=== PATIENT | female | born 2000 | race Caucasian/White ===

== ENCOUNTER 2018-03-06 12:42 | Emergency (ER) | payer SELFPAY ==
[2018-03-06 15:29] LABS: ABS Basophils 0.1 10^3/ul (0-0.2); ABS Eosinophils 0.1 10^3/ul (0-0.6); ABS Lymphocytes 2.2 10^3/ul (1.0-4.8); ABS Monocytes 1.1 10^3/ul (0-0.8); ABS Neutrophils 9.5 10^3/ul (1.5-7.7); ABS Nucleated RBC 0 10^3/ul; Eosinophil % 0.9 % (0-6); Hematocrit 47 % (35-47); Hemoglobin 16.3 g/dl (12.0-16.0); Lymphocyte % 16.7 % (25-47); Mean Corpuscular HGB Conc 34 g/dl (31-36); Mean Corpuscular Hemoglobin 30 pg (27-31); Mean Corpuscular Volume 87 fL (80-97); Mean Platelet Volume 7.1 um3 (7.4-10.4); Nucleated Red Blood Cells % 0; Platelet Count 355 10^3/ul (150-450); Red Blood Count 5.43 10^6/ul (4.00-5.40); Red Cell Distribution Width 14 % (10.5-15)
[2018-03-06 15:46] LABS: EGFR Non-African American 91.1 (>60)
[2018-03-06 16:33] LABS: Urine Appearance Cloudy; Urine Blood Negative (Negative); Urine Color Yellow; Urine Ketones Trace (Negative); Urine Protein 1+(30 mg/dL) (Negative); Urine Specific Gravity 1.021 (1.010-1.030); Urine Urobilinogen Negative (Negative)
--- NOTE | 2018-03-06 21:26 | ED ---
Braulio Turner Stephanie, scribed for Toby Boyer MD on 03/06/18 at 1316 . Psychiatric Complaint - HPI Summary HPI Summary: The pt is a 17 y/o F presenting to the ED with c/o SI and HI that began at today. The pt states there is no diagnosed psych hx however, the pt has been depressed and anxious for the past year since living alone. Pt states her mother does not like that patient identifies as being transgendered and since her mother does not approve she is this way her thoughts of wanting to hurt others or even take her own life increased. Pt denies any specific plans of SI/ HI. - History Of Current Complaint Chief Complaint: EDMentalHealth Time Seen by Provider: 03/06/18 13:08 Hx Obtained From: Patient ?: No Timing: Constant Severity Currently: Moderate Character: Depressed Aggravating Factor(s): Recent Stress Alleviating Factor(s): Nothing Has Suicidal: Reports: Thoughts. Denies: With A Plan Has Homicidal: Reports: Thoughts. Denies: With A Plan - Allergies/Home Medications Allergies/Adverse Reactions: Allergies Allergy/AdvReac Type Severity Reaction Status Date / Time cefaclor Allergy Unknown Verified 03/06/18 14:02 Reaction Details Home Medications: Home Medications NK [No Home Medications Reported] 03/06/18 [History Confirmed 03/06/18] PMH/Surg Hx/FS Hx/Imm Hx Sensory History: Denies: Hx Legally Blind EENT History: Denies: Hx Deafness - Surgical History Surgery Procedure, Year, and Place: Hernia repair as a child Infectious Disease History: No Infectious Disease History: Denies: Traveled Outside the US in Last 30 Days - Family History Known Family History: Negative: Renal Disease - Social History Occupation: Employed Part-time Lives: Alone Alcohol Use: None Hx Substance Use: No Substance Use Type: Reports: None Hx Tobacco Use: No Smoking Status (MU): Never Smoked Tobacco Have You Smoked in the Last Year: No Review of Systems Negative: Fever Negative: Slurred Speech Positive: Other - SI/HI All Other Systems Reviewed And Are Negative: Yes Physical Exam - Summary Physical Exam Summary: VITAL SIGNS: Reviewed. GENERAL: Patient is a well-developed and nourished FEMALE who is lying comfortable in the stretcher. Patient is not in any acute respiratory distress. HEAD AND FACE: No signs of trauma. No ecchymosis, hematomas or skull depressions. No sinus tenderness. EYES: PERRLA, EOMI x 2, No injected conjunctiva, no nystagmus. EARS: Hearing grossly intact. Ear canals and tympanic membranes are within normal limits. MOUTH: Oropharynx within normal limits. NECK: Supple, trachea is midline, no adenopathy, no JVD, no carotid bruit, no c- spine tenderness, neck with full ROM. CHEST: Symmetric, no tenderness at palpation LUNGS: Clear to auscultation bilaterally. No wheezing or crackles. CVS: Regular rate and rhythm, S1 and S2 present, no murmurs or gallops appreciated. ABDOMEN: Soft, non-tender. No signs of distention. No rebound no guarding, and no masses palpated. Bowel sounds are normal. EXTREMITIES: FROM in all major joints, no edema, no cyanosis or clubbing. NEURO: Alert and oriented x 3. No acute neurological deficits. Speech is normal and follows commands. SKIN: Dry and warm Triage Information Reviewed: Yes Vital Signs On Initial Exam: Initial Vitals Temp Pulse Resp BP Pulse Ox 98.2 F 97 16 123/91 99 03/06/18 12:57 03/06/18 12:57 03/06/18 12:57 03/06/18 12:57 03/06/18 12:57 Vital Signs Reviewed: Yes Diagnostics - Vital Signs Vital Signs Temp Pulse Resp BP Pulse Ox 03/06/18 12:57 98.2 F 97 16 123/91 99 - Laboratory Lab Results: Lab Results 03/06/18 03/06/18 Range/Units 15:23 15:23 WBC 13.0 H (3.5-10.8) 10^3/ul RBC 5.43 H (4.00-5.40) 10^6/ul Hgb 16.3 H (12.0-16.0) g/dl Hct 47 (35-47) % MCV 87 (80-97) fL MCH 30 (27-31) pg MCHC 34 (31-36) g/dl RDW 14 (10.5-15) % Plt Count 355 (150-450) 10^3/ul MPV 7.1 L (7.4-10.4) um3 Neut % (Auto) 73.0 (38-83) % Lymph % (Auto) 16.7 L (25-47) % [place] % (Auto) 8.5 H (0-7) % Eos % (Auto) 0.9 (0-6) % Baso % (Auto) 0.9 (0-2) % Absolute Neuts (auto) 9.5 H (1.5-7.7) 10^3/ul Absolute Lymphs (auto) 2.2 (1.0-4.8) 10^3/ul Absolute Monos (auto) 1.1 H (0-0.8) 10^3/ul Absolute Eos (auto) 0.1 (0-0.6) 10^3/ul Absolute Basos (auto) 0.1 (0-0.2) 10^3/ul Absolute Nucleated RBC 0 10^3/ul Nucleated RBC % 0 Sodium 137 (135-145) mmol/L Potassium 4.1 (3.5-5.0) mmol/L Chloride 101 (101-111) mmol/L Carbon Dioxide 26 (22-32) mmol/L Anion Gap 10 (2-11) mmol/L BUN 6 (6-24) mg/dL Creatinine 0.81 (0.51-0.95) mg/dL Est GFR ( Amer) 117.1 (>60) Est GFR (Non-Af Amer) 91.1 (>60) BUN/Creatinine Ratio 7.4 L (8-20) Glucose 84 (70-100) mg/dL Calcium 9.9 (8.6-10.3) mg/dL Total Bilirubin 1.00 (0.2-1.0) mg/dL AST 27 (13-39) U/L ALT 34 (7-52) U/L Alkaline Phosphatase 67 (34-104) U/L Total Protein 7.9 (6.4-8.9) g/dL Albumin 4.7 (3.2-5.2) g/dL Globulin 3.2 (2-4) g/dL Albumin/Globulin Ratio 1.5 (1-3) TSH Pending Salicylates Pending Acetaminophen Pending Serum Alcohol Pending Result Diagrams: 03/06/18 15:23 03/06/18 15:23 Lab Statement: Any lab studies that have been ordered have been reviewed, and results considered in the medical decision making process. Course/Dx - Course Assessment/Plan: Blood work w/o a significant abnormality. She is medically cleared. She is awaiting for a MHE. Patient will be signed out to Dr. Mike at shift change - Differential Dx/Clinical Impression Differential Diagnosis/HQI/PQRI: Positive: Anxiety, Depression, Suicidal Ideation Provider Diagnosis: Depression Discharge - Sign-Out/Discharge Documenting (check all that apply): Discharge/Admit/Transfer - Admit - Discharge Plan Condition: Stable Disposition: PSYCHIATRIC FACILITY[place] Referrals: Anisha Castro DO [Primary Care Provider] - - Billing Disposition and Condition Condition: STABLE Disposition: Psychiatric Facility [facility] The documentation as recorded by the Braulio gore Stephanie accurately reflects the service I personally performed and the decisions made by Merlin avina Walter, MD.
--- NOTE | 2018-03-07 08:02 | PN ---
ED Flex Patient Progress Note Subjective: This is a 17 year-old F who prefers to identify as male who is pending admission evaluation secondary to SI/HI...struggles w/ lack of family's acceptance as a transgender . Pt offers no complaints at this time. Slept well. Would like breakfast. Objective: Vitals: Most recent vital signs documented below. General NAD, Alert and oriented x3. Heart: rrr S1/S2 Lungs: CTA BREATHING EASILY AB: soft, NTTP Integ: no signs of self harm PSYCH: quiet, calm, cooperative Assessment: SI/HI Plan: Pending admission. will follow up daily _while in ED____. Vital Signs Temp Pulse Resp BP Pulse Ox 97.8 F 85 16 115/88 100 03/06/18 16:16 03/06/18 16:16 03/06/18 16:16 03/06/18 16:16 03/06/18 16:16 Lab Results - Entire Visit 03/06/18 03/06/18 03/06/18 15:33 15:33 15:23 WBC RBC Hgb Hct MCV MCH MCHC RDW Plt Count MPV Neut % (Auto) Lymph % (Auto) [place] % (Auto) Eos % (Auto) Baso % (Auto) Absolute Neuts (auto) Absolute Lymphs (auto) Absolute Monos (auto) Absolute Eos (auto) Absolute Basos (auto) Absolute Nucleated RBC Nucleated RBC % Sodium 137 Potassium 4.1 Chloride 101 Carbon Dioxide 26 Anion Gap 10 BUN 6 Creatinine 0.81 Est GFR ( Amer) 117.1 Est GFR (Non-Af Amer) 91.1 BUN/Creatinine Ratio 7.4 L Glucose 84 Calcium 9.9 Total Bilirubin 1.00 AST 27 ALT 34 Alkaline Phosphatase 67 Total Protein 7.9 Albumin 4.7 Globulin 3.2 Albumin/Globulin Ratio 1.5 TSH 0.83 Urine Color Yellow Urine Appearance Cloudy Urine pH 8.0 Ur Specific [place] 1.021 Urine Protein 1+(30 mg/dl) A Urine Ketones Trace A Urine Blood Negative Urine Nitrate Negative Urine Bilirubin Negative Urine Urobilinogen Negative Ur Leukocyte Esterase Trace A Urine WBC (Auto) Trace(0-5/hpf) Urine RBC (Auto) 1+(3-5/hpf) A Ur Squamous Epith Cells Present A Urine Bacteria 1+ A Urine Glucose Negative Salicylates < 2.50 Urine Opiates Screen None detected Acetaminophen < 15 Ur Barbiturates Screen None detected Ur Phencyclidine Scrn None detected Ur Amphetamines Screen None detected U Benzodiazepines Scrn None detected Urine Cocaine Screen None detected U Cannabinoids Screen None detected Serum Alcohol < 10 03/06/18 15:23 WBC 13.0 H RBC 5.43 H Hgb 16.3 H Hct 47 MCV 87 MCH 30 MCHC 34 RDW 14 Plt Count 355 MPV 7.1 L Neut % (Auto) 73.0 Lymph % (Auto) 16.7 L [place] % (Auto) 8.5 H Eos % (Auto) 0.9 Baso % (Auto) 0.9 Absolute Neuts (auto) 9.5 H Absolute Lymphs (auto) 2.2 Absolute Monos (auto) 1.1 H Absolute Eos (auto) 0.1 Absolute Basos (auto) 0.1 Absolute Nucleated RBC 0 Nucleated RBC % 0 Sodium Potassium Chloride Carbon Dioxide Anion Gap BUN Creatinine Est GFR ( Amer) Est GFR (Non-Af Amer) BUN/Creatinine Ratio Glucose Calcium Total Bilirubin AST ALT Alkaline Phosphatase Total Protein Albumin Globulin Albumin/Globulin Ratio TSH Urine Color Urine Appearance Urine pH Ur Specific [place] Urine Protein Urine Ketones Urine Blood Urine Nitrate Urine Bilirubin Urine Urobilinogen Ur Leukocyte Esterase Urine WBC (Auto) Urine RBC (Auto) Ur Squamous Epith Cells Urine Bacteria Urine Glucose Salicylates Urine Opiates Screen Acetaminophen Ur Barbiturates Screen Ur Phencyclidine Scrn Ur Amphetamines Screen U Benzodiazepines Scrn Urine Cocaine Screen U Cannabinoids Screen Serum Alcohol
--- NOTE | 2018-03-07 13:06 | ED ---
I, Angelia Ramsey, scribed for Nikunj Fine MD on 03/07/18 at 1242 . Progress - Progress Note Progress Note: The pt is a sign out from Dr. Mike at shift change pending MHE. - Consult/PCP Time Called: 16:19 Course/Dx - Course Course Of Treatment: Dr. Trejo discharged the pt. - Diagnoses Provider Diagnoses: Depression, Gender dysphoria Discharge - Sign-Out/Discharge Documenting (check all that apply): Discharge/Admit/Transfer - Discharge - Discharge Plan Condition: Stable Disposition: HOME Referrals: Anisha Castro DO [Primary Care Provider] - - Billing Disposition and Condition Condition: STABLE Disposition: Home The documentation as recorded by the Braulio gore Stephanie accurately reflects the service I personally performed and the decisions made by , Nikunj Fine MD.
[2018-03-07 13:31] VITALS: BP 128/84
--- NOTE | 2018-03-07 19:40 | ED ---
Shellie Turner Elizabeth, scribed for Rusty Mike MD on 03/07/18 at 0637 . Progress - Progress Note Progress Note: Patient was signed out to Dr. Mike from Dr. Boyer upon physician shift change pending mental health evaluation. - Consult/PCP Time Called: 16:19 Course/Dx - Course Course Of Treatment: Ptr with no acute events. Pt with prolonged stay due to awaiting Psychiatry recommendation. Plan was for discharge home with outpatient services. - Diagnoses Provider Diagnoses: Depression, Gender dysphoria Discharge - Sign-Out/Discharge Documenting (check all that apply): Sign-Out Patient Signing out patient TO: Nikunj Fine Receiving patient FROM: Rusty Mike - Discharge Plan Condition: Stable Disposition: HOME Discharge Disposition Comment: Sign out to Dr. Fine upon physician shift change pending MHE Referrals: Anisha Castro DO [Primary Care Provider] - - Billing Disposition and Condition Condition: STABLE Disposition: Home The documentation as recorded by the Shellie gore Elizabeth accurately reflects the service I personally performed and the decisions made by Rashid avina Omari A, MD.
== END 2018-03-07 13:00 | disposition home or self-care (01) ==
LOC: ED 12:42
DX: F32.9 Major depressive disorder, single episode, unspecified (principal); F64.9 Gender identity disorder, unspecified; R45.851 Suicidal ideations; R45.850 Homicidal ideations
CPT/HCPCS: 36415; 80053; 80307; 80320; 80329; 81003; 81015; 84443; 85025; 87086; 99284; G0480

== ENCOUNTER 2019-09-28 13:31 | Emergency (ER) | payer SELFPAY ==
--- NOTE | 2019-09-28 14:36 | ED ---
Psychiatric Complaint - HPI Summary HPI Summary: 18-year-old female who prefers to identify as male presents to the emergency department today with suicidal ideation. Patient currently denies gestures of self-harm and states "I don't want to commit suicide, I just dont want to be alive anymore". Patient denies homicidal ideation. The patient states he has performed self-harm in the past in the form of cutting his wrists. Patient states he lives a home alone and feels he has no support system and is having difficulty with it everyday life due to depression and anxiety. Patient is currently looking for a counselor. Patient doesn't have a specific plan to hurt himself but states "I wish I would go to sleep and not wake up so I don't have the deal with stress". The patient does not currently take any medications. Patient denies recent alcohol use or recreational drug use. Family history and surgical history noncontributory. Patient states he does not believe he will hurt himself or try to commit suicide while in the emergency department. Patient states he otherwise feels well and denies fever, chest pain, abdominal pain, pain in urination, rash. - History Of Current Complaint Chief Complaint: EDMentalHealth Time Seen by Provider: 09/28/19 14:27 Hx Obtained From: Patient Onset/Duration: Gradual Onset Timing: Constant Severity Initially: Severe Severity Currently: Severe Character: Depressed, Anxious Aggravating Factor(s): Recent Stress Alleviating Factor(s): Nothing Associated Signs And Symptoms: Positive: Sleep Disturbance, Social Withdrawal Related History: Positive For: Prior Psychiatric Issues Has Suicidal: Reports: Thoughts, Has Prior Attempt(s). Denies: With A Plan, Demonstrates Gesture Has Homicidal: Denies: Thoughts, With A Plan, Demonstrates Gesture, Has Prior Attempt(s) - Allergies/Home Medications Allergies/Adverse Reactions: Allergies Allergy/AdvReac Type Severity Reaction Status Date / Time cefaclor Allergy Unknown Verified 09/28/19 13:47 Reaction Details Penicillins Allergy Unknown Verified 09/28/19 13:47 Reaction Details Home Medications: Home Medications NK [No Home Medications Reported] 09/28/19 [History Confirmed 09/28/19] PMH/Surg Hx/FS Hx/Imm Hx Sensory History: Denies: Hx Legally Blind, Hx Deafness Opthamlomology History: Denies: Hx Legally Blind Psychiatric History: Denies: Hx Eating Disorder, Hx of Violent Episodes Against Others - Surgical History Surgery Procedure, Year, and Place: Hernia repair as a child Infectious Disease History: No Infectious Disease History: Denies: Traveled Outside the [place] in Last 30 Days - Family History Known Family History: Negative: Renal Disease - Social History Alcohol Use: None Hx Substance Use: No Substance Use Type: Reports: None Hx Tobacco Use: No Smoking Status (MU): Never Smoked Tobacco Have You Smoked in the Last Year: No Review of Systems Constitutional: Negative Eyes: Negative ENT: Negative Cardiovascular: Negative Respiratory: Negative Gastrointestinal: Negative Genitourinary: Negative Musculoskeletal: Negative Skin: Negative Neurological: Negative Psychological: Normal All Other Systems Reviewed And Are Negative: Yes Physical Exam - Summary Physical Exam Summary: Patient has a flat affect and conversation and makes poor eye contact. Triage Information Reviewed: Yes Vital Signs On Initial Exam: Initial Vitals Temp Pulse Resp BP Pulse Ox 97.8 F 108 14 133/89 97 09/28/19 13:36 09/28/19 13:36 09/28/19 13:36 09/28/19 13:36 09/28/19 13:36 Vital Signs Reviewed: Yes Appearance: Positive: Well-Appearing, No Pain Distress, Well-Nourished Skin: Positive: Warm, Skin Color Reflects Adequate Perfusion Eyes: Positive: EOMI, ALYSSA ENT: Positive: Hearing grossly normal Respiratory/Lung Sounds: Positive: Clear to Auscultation, Breath Sounds Present Cardiovascular: Positive: RRR, S1, S2 Abdomen Description: Positive: Nontender, Soft Bowel Sounds: Positive: Present Musculoskeletal: Positive: Strength/ROM Intact Neurological: Positive: Sensory/Motor Intact, Alert, Oriented to Person Place, Time, Normal Gait, Facial Symmetry, Speech Normal Psychiatric: Positive: Anxious, Depressed AVPU Assessment: Alert Procedures - Sedation Patient Received Moderate/Deep Sedation with Procedure: No Diagnostics - Vital Signs Vital Signs Temp Pulse Resp BP Pulse Ox 09/28/19 13:36 97.8 F 108 14 133/89 97 - Laboratory Result Diagrams: 09/28/19 14:44 09/28/19 14:44 Lab Statement: Any lab studies that have been ordered have been reviewed, and results considered in the medical decision making process. Course/Dx - Course Course Of Treatment: Patient was evaluated in the emergency department today for suicidal ideation. Patient was seen and examined their vital signs are stable and they were afebrile. Upon arrival to emergency department the patient was placed in a safe room, placed under observation and changed into hospital scrubs. Their belongings were collected and placed in a locked box. Laboratory studies were ordered for mental health clearance including urinalysis and toxicology. Labs returned showing no significant abnormalities. Patient was cleared for mental health evaluation and disposition by psychiatric services. Dr Trejo found the patient fit for discharge with outpatient follow- up at [facility] with a diagnosis of depressive episode. - Differential Dx/Clinical Impression Differential Diagnosis/HQI/PQRI: Positive: Acute Psychosis, Anxiety, Depression , Suicidal Ideation, Suicidal Gesture Provider Diagnosis: Depressive episode - Physician Notifications Discussed Care Of Patient With: Brandon Trejo - Pt fit for discharge with outpatient follow up at [facility]. Discharge ED - Sign-Out/Discharge Documenting (check all that apply): Patient Departure - Discharge Plan Condition: Stable Disposition: HOME Referrals: No Primary Care Phys,NOPCP [Primary Care Provider] - - Billing Disposition and Condition Condition: STABLE Disposition: Home - Attestation Statements Provider Attestation: I was available for consult. This patient was seen by the ANTELMO. The patient was not presented to, seen by, or examined by me. Braxton Rivera MD
[2019-09-28 14:52] LABS: ABS Basophils 0.1 10^3/ul (0-0.2); ABS Eosinophils 0.1 10^3/ul (0-0.6); ABS Lymphocytes 3.3 10^3/ul (1.0-4.8); ABS Monocytes 1.3 10^3/ul (0-0.8); ABS Neutrophils 7.6 10^3/ul (1.5-7.7); Eosinophil % 1.2 %; Hematocrit 46 % (42-52); Hemoglobin 15.8 g/dL (14.0-18.0); Lymphocyte % 26.3 %; Mean Corpuscular HGB Conc 35 g/dL (31-36); Mean Corpuscular Hemoglobin 31 pg (27-31); Mean Corpuscular Volume 89 fL (80-94); Mean Platelet Volume 7.1 fL (7.4-10.4); Platelet Count 407 10^3/uL (150-450); Red Blood Count 5.13 10^6 /uL (4.18-5.48); Red Cell Distribution Width 13 % (10-15); White Blood Count 12.4 10^3/uL (3.5-10.8)
[2019-09-28 15:09] LABS: ALT 16 U/L (7-52); AST 17 U/L (13-39); Albumin 4.7 g/dL (3.2-5.2); Albumin/Globulin Ratio 1.6 (1-3); Alkaline Phosphatase 71 U/L (34-104); Anion Gap 7 mmol/L (2-11); BUN/Creatinine Ratio 14.4 (8-20); Blood Urea Nitrogen 13 mg/dL (6-24); CO2 Carbon Dioxide 27 mmol/L (22-32); Calcium 9.7 mg/dL (8.6-10.3); Chloride 105 mmol/L (101-111); EGFR African American 130.2 (>60); EGFR Non-African American 107.6 (>60); Globulin 2.9 g/dL (2-4); Glucose 73 mg/dL (70-100); Sodium 139 mmol/L (135-145); Total Protein 7.6 g/dL (6.4-8.9)
[2019-09-28 15:13] LABS: Acetaminophen < 15 mcg/mL; Alcohol < 10 mg/dL (<10); Salicylate < 2.50 mg/dL (<30)
[2019-09-28 15:28] LABS: TSH (Thyroid Stimulating Horm) 0.68 mcIU/mL (0.34-5.60)
[2019-09-28 16:26] VITALS: BP 117/65
== END 2019-09-28 17:06 | disposition home or self-care (01) ==
LOC: ED 13:31
DX: F32.9 Major depressive disorder, single episode, unspecified (principal); R45.851 Suicidal ideations; G47.9 Sleep disorder, unspecified
CPT/HCPCS: 36415; 80053; 80320; 80329; 84443; 85025; 99284; G0480

== ENCOUNTER 2020-01-08 11:28 | Inpatient (IN) | payer OTHER ==
--- NOTE | 2020-01-08 12:20 | ED ---
Psychiatric Complaint - HPI Summary HPI Summary: This patient is a 19-year-old male with history of depression and anxiety presenting to the ED with suicidal ideation. Patient states he has been more depressed recently and has a plan for jumping off an overpass. Denies any drug or alcohol use. Patient denies any homicidal ideation. He denies any smoking history. The patient states he has performed self-harm in the past in the form of cutting his wrists. He states he lives alone and this worsens his thoughts of depression. He states he feels safe in the hospital. - History Of Current Complaint Chief Complaint: EDSuicidal Time Seen by Provider: 01/08/20 11:34 Hx Obtained From: Patient Onset/Duration: Gradual Onset Timing: Constant Severity Initially: Mild Severity Currently: Mild Character: Manic, Depressed Aggravating Factor(s): Recent Stress Alleviating Factor(s): Nothing Has Suicidal: Reports: With A Plan - Risk Factor(s) Completed Suicide Risk Factors: Age Greater Than 60, White [place] - Allergies/Home Medications Allergies/Adverse Reactions: Allergies Allergy/AdvReac Type Severity Reaction Status Date / Time cefaclor Allergy Unknown Verified 01/08/20 11:33 Reaction Details Penicillins Allergy Unknown Verified 01/08/20 11:33 Reaction Details Home Medications: Home Medications NK [No Home Medications Reported] 01/08/20 [History Confirmed 01/08/20] PMH/Surg Hx/FS Hx/Imm Hx Previously Healthy: Yes Sensory History: Denies: Hx Legally Blind, Hx Deafness Opthamlomology History: Denies: Hx Legally Blind Psychiatric History: Reports: Hx Depression, Hx Post Traumatic Stress Disorder Denies: Hx Eating Disorder, Hx Schizophrenia, Hx Bipolar Disorder, Hx Suicide Attempt, Hx of Violent Episodes Against Others - Surgical History Surgery Procedure, Year, and Place: Hernia repair as a child - Immunization History Hx Pertussis Vaccination: No Immunizations Up to Date: Yes Infectious Disease History: No Infectious Disease History: Denies: Traveled Outside the [place] in Last 30 Days - Family History Known Family History: Negative: Renal Disease - Social History Occupation: Unemployed Lives: With Family Alcohol Use: Daily Alcohol Amount: drinks daily, not in 2 days. Hx Substance Use: No Substance Use Type: Reports: None Hx Tobacco Use: No Smoking Status (MU): Never Smoked Tobacco Have You Smoked in the Last Year: No Review of Systems Negative: Fever, Chills, Fatigue, Skin Diaphoresis Negative: Palpitations, Chest Pain Negative: Shortness Of Breath, Cough Negative: Arthralgia, Myalgia Negative: Rash, Bruising Positive: Anxious, Depressed All Other Systems Reviewed And Are Negative: Yes Physical Exam Triage Information Reviewed: Yes Vital Signs On Initial Exam: Initial Vitals Temp Pulse Resp BP Pulse Ox 98.1 F 94 16 138/89 98 01/08/20 11:29 01/08/20 11:29 01/08/20 11:29 01/08/20 11:01/08/20 11:29 Vital Signs Reviewed: Yes Appearance: Positive: Well-Appearing, Well-Nourished Skin: Positive: Warm, Skin Color Reflects Adequate Perfusion Head/Face: Positive: Normal Head/Face Inspection Eyes: Positive: EOMI, ALYSSA, Conjunctiva Clear Neck: Positive: Supple, No Lymphadenopathy Respiratory/Lung Sounds: Positive: Clear to Auscultation, Breath Sounds Present Cardiovascular: Positive: RRR, Pulses are Symmetrical in both Upper and Lower Extremities Musculoskeletal: Positive: Normal, Strength/ROM Intact Psychiatric: Positive: Anxious, Depressed AVPU Assessment: Alert Procedures - Sedation Patient Received Moderate/Deep Sedation with Procedure: No Diagnostics - Vital Signs Vital Signs Temp Pulse Resp BP Pulse Ox 01/08/20 11:29 98.1 F 94 16 138/89 98 - Laboratory Lab Statement: Any lab studies that have been ordered have been reviewed, and results considered in the medical decision making process. Course/Dx - Course Course Of Treatment: During the course of treatment, the patient is evaluated for suidical ideation. Pt endorses plan. Pt denies any physical complaints. Pt is cleared for MHE. Per Dr. Trejo following MHE, pt will be admitted voluntary for depressive disoder NOS. - Differential Dx/Clinical Impression Provider Diagnosis: Depression - Critical Care Time Critical Care Statement: Critical care time is provided exclusive of any time spent performing procedures. Discharge ED - Sign-Out/Discharge Documenting (check all that apply): Patient Departure - Discharge Plan Condition: Good Disposition: ADMITTED TO [facility] Referrals: No Primary Care Phys,NOPCP [Primary Care Provider] - - Billing Disposition and Condition Condition: GOOD Disposition: Admitted to [facility]
[2020-01-08] MEDS ORDERED: Al Hydrox/Mg Hydrox/Simet LIQ* 30 ML UDC PO PRN (13:05)
[2020-01-08] MEDS ORDERED: Acetaminophen TAB* 325 MG PO PRN (13:05)
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
[2020-01-08] MEDS: Escitalopram * 10 MG TAB PO SCH (16:11)
[2020-01-08 17:44] LABS: ABS Basophils 0.1 10^3/ul (0-0.2); ABS Eosinophils 0.3 10^3/ul (0-0.6); ABS Lymphocytes 3.5 10^3/ul (1.0-4.8); ABS Monocytes 0.9 10^3/ul (0-0.8); ABS Neutrophils 4.8 10^3/ul (1.5-7.7); Eosinophil % 2.8 %; Hematocrit 46 % (42-52); Hemoglobin 16.1 g/dL (14.0-18.0); Lymphocyte % 36.5 %; Mean Corpuscular HGB Conc 35 g/dL (31-36); Mean Corpuscular Hemoglobin 31 pg (27-31); Mean Corpuscular Volume 89 fL (80-94); Mean Platelet Volume 7.1 fL (7.4-10.4); Nucleated Red Blood Cells % 0.1; Platelet Count 339 10^3/uL (150-450); Red Blood Count 5.18 10^6 /uL (4.18-5.48); Red Cell Distribution Width 13 % (10-15); White Blood Count 9.7 10^3/uL (3.5-10.8)
[2020-01-08 17:59] LABS: ALT 20 U/L (7-52); AST 18 U/L (13-39); Albumin 4.3 g/dL (3.2-5.2); Albumin/Globulin Ratio 1.5 (1-3); Alkaline Phosphatase 60 U/L (34-104); Anion Gap 7 mmol/L (2-11); Blood Urea Nitrogen 8 mg/dL (6-24); CO2 Carbon Dioxide 27 mmol/L (22-32); Calcium 9.4 mg/dL (8.6-10.3); Chloride 103 mmol/L (101-111); EGFR African American 164.1 (>60); EGFR Non-African American 135.6 (>60); Globulin 2.9 g/dL (2-4); Glucose 80 mg/dL (70-100); Sodium 137 mmol/L (135-145); Total Protein 7.2 g/dL (6.4-8.9)
[2020-01-08 18:26] LABS: Acetaminophen < 15 mcg/mL; Alcohol < 10 mg/dL (<10); Salicylate < 2.50 mg/dL (<30)
[2020-01-08] MEDS ORDERED: Ondansetron ODT TAB* 4 MG SL ONE (18:34)
[2020-01-08 18:39] LABS: TSH (Thyroid Stimulating Horm) 1.63 mcIU/mL (0.34-5.60)
[2020-01-09] MEDS: buPROPion TAB* 100 MG PO SCH (10:03)
[2020-01-09] MEDS: Escitalopram * 10 MG TAB PO SCH (10:03)
[2020-01-09] MEDS: Vitamin THERAPEUTIC TAB PO SCH (10:04)
--- NOTE | 2020-01-09 21:39 | PN ---
Subjective - Subjective Date of Service: 01/09/20 Service Type: 63336 Hosp care 15 min low complexity Subjective: Isak reports his mood is good and he has no continued SI. Reports having only fantasies of HI, nothing he would ever do. REports sleeping fine. Has no physical complaints and makes no requests of me. Objective - General Observations Appearance: Neat Appears Stated Age: Yes Stature: WNL Posture: WNL Eye Contact: Average Behavior/Activity: WNL - Interaction Observations Attitude Towards Examiner: Cooperative Stated Mood: Euthymic Affect: Restricted Speech Pattern/Tone: Clear, Appropriate, Normal Volume Thought Process: Coherent, Goal Directed Perception: WNL Thought Content: WNL Thought Process: Lethality: Homicidal Ideation - reported as only fantasies Hallucination Type: None Delusion Type: None - Cognitive Function Orientation: A&O x 4 Level of Consciousness: Awake, Alert, Appropriate Cognition: WNL Estimated Intelligence: Normal - Medication Compliance Cooperative with Inpatient Medication Regimen: Yes - Group Participation Participates in Group Activities: Yes Assessment - Assessment Merits Inpatient Hospitalization: For Immediate Safety, For Stabilization, To Initiate Treatment, For Ongoing Evaluation, For Discharge Planning, Pending Safe DC Plan Clinical Impression: Isak is a 19-year-old male with a history of depression and anxiety who presented to the emergency department following a self-interrupted suidide attempt at the [employer] garage. He reports tolerating recently started Lexapro 10 mg daity and Wellburin 100 mg daily well. He has no physical complaints. Plan - Plan Treatment Plan: Name: ISAK QUESADA Birthdate: 2000 [id number] Continue current meds. Encourage continued engagement in the therapeutic milieu and groups. Discharge planning will continue on Saturday, with coordination of aftercare and possible family meeting. Medications: Current Medications Acetaminophen (Tylenol Tab*) 650 mg PO Q4H PRN PRN Reason: for pain; or Temp >101 F Al Hydrox/Mg Hydrox/Simethicone (Maalox Plus*) 30 ml PO Q4H PRN PRN Reason: INDIGESTION Bupropion HCl (Wellbutrin Tab*) 100 mg PO DAILY [facility] Last Admin: 01/09/20 10:03 Dose: 100 mg Escitalopram Oxalate (Lexapro *) 10 mg PO DAILY [facility] Last Admin: 01/09/20 10:03 Dose: 10 mg Multivitamins (Theragran Tab*) 1 tab PO DAILY [facility] Last Admin: 01/09/20 10:04 Dose: 1 tab - Discharge Plan Discharge Plan: Outpatient Follow Up
[2020-01-10] MEDS: Vitamin THERAPEUTIC TAB PO SCH (09:49)
[2020-01-10] MEDS: buPROPion TAB* 100 MG PO SCH (09:50)
[2020-01-10] MEDS: Escitalopram * 10 MG TAB PO SCH (09:50)
--- NOTE | 2020-01-11 08:33 | PN ---
Subjective - Subjective Date of Service: 01/11/20 Service Type: 85345 Hosp care 35 min high complexity Subjective: Nursing Report: Patient was visible on unit, no behavioral incidents. Slept 6hrs overnight. He is attending group activities. CC: "I spoke with my family" This patient was seen and evaluated today. He reported speaking to his mother over the weekend whom he hasnt spoke with in 3 years. He reported improvement of his depression. He ate some meals and slept 6 hours. The patient reports attending day groups. Per nursing no behavioral issues or overnight events reported. Patient reported that he is tolerating medications without side effects. The patient hopes to get a new job once discharged and expressed his current job to be a main stressor for him. He plans to stay in [place]. Objective - General Observations Appearance: Disheveled Appears Stated Age: Yes Stature: Overweight Posture: Slumped Eye Contact: Average Behavior/Activity: WNL - Interaction Observations Attitude Towards Examiner: Cooperative, Anxious Stated Mood: Anxious Affect: Restricted Speech Pattern/Tone: Appropriate, Normal Volume Thought Process: Coherent Perception: WNL Thought Content: Depressive Hallucination Type: Denies Delusion Type: Denies - Cognitive Function Orientation: A&O x 4 Level of Consciousness: Awake Insight: WNL - Medication Compliance Cooperative with Inpatient Medication Regimen: Yes - Group Participation Participates in Group Activities: Yes Assessment - Assessment Merits Inpatient Hospitalization: For Immediate Safety Clinical Impression: Isak is a 19-year-old male with a history of depression and anxiety who presented to the emergency department following a self-interrupted suicide attempt at the [facility]. He reports tolerating recently started Lexapro 10 mg daity and Wellburin 100 mg daily well. He has no physical complaints. Plan - Plan Treatment Plan: Name: ISAK QUESADA Birthdate: 2000 [id number] # Q30 minute observation with staff pass and computer # The patient requires psychiatric inpatient admission at this time to assure safety, receive treatment and work toward stabilization. # Obtain collateral information once release is signed. # Collaboration with [employer] Padma Castle # Continue wellbutrin 100mg po daily for augmentation treatment for psychomotor retardation. Patient does not have history of seizure or eating disorder. # Continue lexapro 10mg po daily for depression # Completed MMPI that showed some increase in hypomania. #Goals before discharge include: Psychiatric Stabilization Tentative Discharge: Saturday Continued Medication Management: Continue Outpt Medication Medications: Current Medications Acetaminophen (Tylenol Tab*) 650 mg PO Q4H PRN PRN Reason: for pain; or Temp >101 F Al Hydrox/Mg Hydrox/Simethicone (Maalox Plus*) 30 ml PO Q4H PRN PRN Reason: INDIGESTION Bupropion HCl (Wellbutrin Tab*) 100 mg PO DAILY [facility] Last Admin: 01/10/20 09:50 Dose: 100 mg Escitalopram Oxalate (Lexapro *) 10 mg PO DAILY [facility] Last Admin: 01/10/20 09:50 Dose: 10 mg Multivitamins (Theragran Tab*) 1 tab PO DAILY [facility] Last Admin: 01/10/20 09:49 Dose: 1 tab - Discharge Plan Discharge Plan: Inpatient Hospitalization
[2020-01-11] MEDS: buPROPion TAB* 100 MG PO SCH (09:02)
[2020-01-11] MEDS: Escitalopram * 10 MG TAB PO SCH (09:02)
[2020-01-11] MEDS: Vitamin THERAPEUTIC TAB PO SCH (09:02)
[2020-01-11] MEDS ORDERED: diPHENhydraMINE PO* 50 MG ONE (21:37)
[2020-01-11] MEDS ORDERED: diPHENhydraMINE PO* 50 MG PO ONE (22:00)
[2020-01-12] MEDS: Escitalopram * 10 MG TAB PO SCH (10:02)
[2020-01-12] MEDS: buPROPion TAB* 100 MG PO SCH (10:02)
[2020-01-12] MEDS: Vitamin THERAPEUTIC TAB PO SCH (10:02)
--- NOTE | 2020-01-12 11:13 | PN ---
Subjective - Subjective Date of Service: 01/12/20 Service Type: [id number] Hosp care 35 min high complexity Subjective: Nursing Report: Patient was visible on unit, no behavioral incidents. Slept 8hrs overnight. CC: "I am good" This patient was seen and evaluated today. He reported his mood is better and his sleep has improved. He spoke to his mother who lives in [place] and does not plan to come to [place]. He reported having adequate appetite and sleep. The patient reports attending day groups. Per nursing no behavioral issues or overnight events reported. Patient reported that he is tolerating medications without side effects. Objective - General Observations Appearance: Neat Appears Stated Age: Yes Stature: WNL Posture: Slumped Eye Contact: Average Behavior/Activity: Slowed - Interaction Observations Attitude Towards Examiner: Cooperative Stated Mood: Euthymic Affect: Restricted Speech Pattern/Tone: Clear, Appropriate, Normal Volume Thought Process: Coherent Perception: WNL Thought Content: WNL Hallucination Type: Denies Delusion Type: Denies - Cognitive Function Orientation: A&O x 4 Level of Consciousness: Awake Estimated Intelligence: Borderline Range Insight: WNL - Medication Compliance Cooperative with Inpatient Medication Regimen: Yes - Group Participation Participates in Group Activities: Partial Assessment - Assessment Merits Inpatient Hospitalization: For Immediate Safety Clinical Impression: Isak is a 19-year-old male with a history of depression and anxiety who presented to the emergency department following a self-interrupted suicide attempt at the [facility]. He reports tolerating recently started Lexapro 10 mg daity and Wellburin 100 mg daily well. He has no physical complaints. Plan - Plan Treatment Plan: Name: ISAK QUESADA Birthdate: 2000 [id number] # Q30 minute observation with staff pass and computer # The patient requires psychiatric inpatient admission at this time to assure safety, receive treatment and work toward stabilization. # Obtain collateral information once release is signed. # Collaboration with Director Speech Padma Castle # Continue wellbutrin 100mg po daily for augmentation treatment for psychomotor retardation. Patient does not have history of seizure or eating disorder. # Continue lexapro 10mg po daily for depression # Completed MMPI that showed some increase in hypomania. # Arrange follow up at [facility] with medication management #Goals before discharge include: Psychiatric Stabilization Tentative Discharge: Saturday Continued Medication Management: Continue Outpt Medication Medications: Current Medications Acetaminophen (Tylenol Tab*) 650 mg PO Q4H PRN PRN Reason: for pain; or Temp >101 F Al Hydrox/Mg Hydrox/Simethicone (Maalox Plus*) 30 ml PO Q4H PRN PRN Reason: INDIGESTION Bupropion HCl (Wellbutrin Tab*) 100 mg PO DAILY [facility] Last Admin: 01/12/20 10:02 Dose: 100 mg Escitalopram Oxalate (Lexapro *) 10 mg PO DAILY [facility] Last Admin: 01/12/20 10:02 Dose: 10 mg Multivitamins (Theragran Tab*) 1 tab PO DAILY [facility] Last Admin: 01/12/20 10:02 Dose: 1 tab - Discharge Plan Discharge Plan: Inpatient Hospitalization Outpatient Program: [facility]
[2020-01-13] MEDS: Vitamin THERAPEUTIC TAB PO SCH (08:18)
[2020-01-13] MEDS: buPROPion TAB* 100 MG PO SCH (08:18)
[2020-01-13] MEDS: Escitalopram * 10 MG TAB PO SCH (08:18)
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
[2020-01-13 08:47] VITALS: BP 119/64
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
== END 2020-01-13 12:40 | disposition home or self-care (01) | DRG 751 ==
LOC: ED 11:28 → BSU 13:05 → ED 17:54
PROVIDERS: ADMIT Psychiatry & Neurology Psychiatry; ATTEND Psychiatry & Neurology Psychiatry
DX: F33.2 Major depressive disorder, recurrent severe without psychotic features (principal); R45.851 Suicidal ideations; F90.9 Attention-deficit hyperactivity disorder, unspecified type; F43.10 Post-traumatic stress disorder, unspecified; R45.850 Homicidal ideations; F41.1 Generalized anxiety disorder; Z62.810 Personal history of physical and sexual abuse in childhood; Z81.1 Family history of alcohol abuse and dependence
CPT/HCPCS: 36415; 80053; 80320; 80329; 84443; 85025; 96130; 99222; 99231; 99233; 99238; 99285; A9270-GY; G0480

== ENCOUNTER 2020-10-20 16:42 | Inpatient (IN) ==
[2020-10-20 17:57] LABS: Urine Appearance Cloudy; Urine Bilirubin Negative (Negative); Urine Blood 1+ (Negative); Urine Color Yellow; Urine Glucose Negative (Negative); Urine Ketones Negative (Negative); Urine Nitrite Negative (Negative); Urine Protein Negative (Negative); Urine Specific Gravity 1.013 (1.010-1.030); Urine Urobilinogen Negative (Negative)
[2020-10-20 18:09] LABS: Urine Bacteria 2+ (Absent); Urine Red Blood Cell Trace(0-2/hpf) (Absent); Urine Squamous Epithelial Cell Present (Absent); Urine White Blood Cell Trace(0-5/hpf) (Absent)
[2020-10-20 18:11] LABS: ABS Basophils 0.1 10^3/ul (0-0.2); ABS Eosinophils 0.1 10^3/ul (0-0.6); ABS Lymphocytes 2.4 10^3/ul (1.0-4.8); ABS Monocytes 0.7 10^3/ul (0-0.8); ABS Neutrophils 4.6 10^3/ul (1.5-7.7); Eosinophil % 1.3 %; Hematocrit 49 % (42-52); Hemoglobin 17.6 g/dL (14.0-18.0); Lymphocyte % 30.5 %; Mean Corpuscular HGB Conc 36 g/dL (31-36); Mean Corpuscular Hemoglobin 32 pg (27-31); Mean Corpuscular Volume 89 fL (80-94); Mean Platelet Volume 7.4 fL (7.4-10.4); Nucleated Red Blood Cells % 0.1; Platelet Count 359 10^3/uL (150-450); Red Blood Count 5.44 10^6 /uL (4.18-5.48); Red Cell Distribution Width 13 % (10-15); White Blood Count 7.8 10^3/uL (3.5-10.8)
[2020-10-20 18:18] LABS: ALT 19 U/L (7-52); AST 20 U/L (13-39); Albumin 5.1 g/dL (3.2-5.2); Albumin/Globulin Ratio 1.4 (1-3); Alkaline Phosphatase 71 U/L (34-104); Anion Gap 8 mmol/L (2-11); BUN/Creatinine Ratio 15.9 (8-20); Blood Urea Nitrogen 13 mg/dL (6-24); CO2 Carbon Dioxide 26 mmol/L (22-32); Calcium 9.7 mg/dL (8.6-10.3); Chloride 103 mmol/L (101-111); EGFR African American 143.5 (>60); EGFR Non-African American 118.6 (>60); Globulin 3.6 g/dL (2-4); Glucose 78 mg/dL (70-100); Potassium 3.8 mmol/L (3.5-5.0); Sodium 137 mmol/L (135-145); Total Protein 8.7 g/dL (6.4-8.9)
[2020-10-20 18:19] LABS: Urine Benzodiazepine Screen None Detected (None Detect); Urine Cannabinoids Screen None Detected (None Detect); Urine Opiates Screen None Detected (None Detect)
[2020-10-20 18:21] LABS: Acetaminophen < 15 mcg/mL; Alcohol, S < 10 mg/dL (<10); Salicylate < 2.50 mg/dL (<30)
[2020-10-20 18:34] LABS: TSH Ultra Thyroid Stim Horm 1.05 mcIU/mL (0.34-5.60)
[2020-10-21] MEDS ORDERED: Al Hydrox/Mg Hydrox/Simet LIQ 30 ML UDC PO PRN (01:06)
[2020-10-21] MEDS: Vitamin THERAPEUTIC TAB PO SCH (09:32)
[2020-10-22] MEDS: Vitamin THERAPEUTIC TAB PO SCH (09:17)
[2020-10-23] MEDS: Vitamin THERAPEUTIC TAB PO SCH (07:55)
[2020-10-24] MEDS: Vitamin THERAPEUTIC TAB PO SCH (12:12)
[2020-10-25] MEDS: Vitamin THERAPEUTIC TAB PO SCH (09:16)
[2020-10-26] MEDS: Vitamin THERAPEUTIC TAB PO SCH (09:57)
[2020-10-27] MEDS: Vitamin THERAPEUTIC TAB PO SCH (11:14)
[2020-10-27] MEDS ORDERED: Testosterone Cypionate (NF) 200 MG/ML VIAL IM ONE ×2 (12:19→13:00)
[2020-10-28 08:15] VITALS: BP 108/67
[2020-10-28] MEDS: Vitamin THERAPEUTIC TAB PO SCH (09:03)
== END 2020-10-28 10:00 | disposition home or self-care (01) | DRG 751 ==
LOC: ED 16:42 → BSU 23:04
PROVIDERS: ADMIT Psychiatry & Neurology Psychiatry; ATTEND Psychiatry & Neurology Psychiatry